=== PATIENT | female | born 1970 | race Caucasian/White ===

== ENCOUNTER 2021-11-26 13:20 | Emergency (ER) | payer OTHER ==
[~2021-11-26] VITALS: Ht 167.6 cm; Wt 79.8 kg
[~2021-11-26 13:20] MED LIST: ALLEGRA ALLERG180 MG PO; AMOX1TAB5 PO; GILTUSS TR TAB1 EACH PO; TESSALON PERLE100 MG PO
[2021-11-26] MEDS ORDERED: CHLORTHALIDONE25 MG PO (13:34)
== END 2021-11-26 17:53 | disposition home or self-care (01) ==
LOC: ER 13:20
DX: R55 Syncope and collapse (principal); E86.0 Dehydration

== ENCOUNTER → 2022-06-12 | Emergency (ER) | payer OTHER ==
[~2022-06-12] MED LIST changes: +CHLORTHALIDONE25 MG PO; +IRBESARTAN75 MG PO
== END | disposition left against medical advice (07) ==
LOC: ER 11:56
DX: Z53.21 Procedure and treatment not carried out due to patient leaving prior to being seen by health care provider (principal)